=== PATIENT | female | born 1945 | race Caucasian/White ===

== ENCOUNTER → 2016-04-11 | Outpatient (CLI) | payer MEDICARE, OTHER ==
[2016-04-11 08:18] LABS: ALT 51 U/L (9-52); AST 32 U/L (14-36); Cholesterol 209 mg/dL (<200); Creatine Kinase 40 U/L (30-135); HDL Cholesterol 72 mg/dL (40-60); Triglycerides 229 mg/dL (<150)
== END | disposition home or self-care (01) ==
LOC: LABWHC1 07:24
PROVIDERS: ATTEND Internal Medicine Cardiovascular Disease
DX: E78.2 Mixed hyperlipidemia (principal)
CPT/HCPCS: 36415; 80061; 82550; 84450; 84460

== ENCOUNTER → 2016-09-11 | Outpatient (CLI) | payer MEDICARE, OTHER ==
[~2016-09-11] MED LIST: COSYNTROPIN 0.25 MG VIAL IVP NR; SODIUM CHLORIDE 0.9% 250 ML in EMPTY BAG 1 BAG IV PRN; SODIUM CHLORIDE 0.9% 500 ML in EMPTY BAG 1 BAG IV PRN
[2016-09-11 10:34] VITALS: BP 146/78; PULSE 73; RESP 16; TEMP 97.8
[2016-09-11 11:55] LABS: ALT 40 U/L (9-52); AST 25 U/L (14-36); Alkaline Phosphatase 76 U/L (38-126); Anion Gap 12 mmol/L; Blood Urea Nitrogen 14 mg/dL (7-17); Calcium 9.8 mg/dL (8.4-10.2); Carbon Dioxide 28 mmol/L (22-30); Chloride 102 mmol/L (98-107); Glucose 97 mg/dL (74-99); Non-African American GFR(MDRD) >60 (>60 ml/min/1.73 sqM); Potassium 3.9 mmol/L (3.5-5.1); Sodium 142 mmol/L (137-145); Total Bilirubin 0.8 mg/dL (0.2-1.3); Total Protein 6.6 g/dL (6.3-8.2)
== END | disposition home or self-care (01) ==
LOC: PROCWHC3 09:54
PROVIDERS: ATTEND Internal Medicine Endocrinology, Diabetes & Metabolism
DX: D35.00 Benign neoplasm of unspecified adrenal gland (principal)
CPT/HCPCS: 83835; 80053; 82533; 82088; 84244; G0463; 82384; 99213

== ENCOUNTER → 2016-11-13 | Outpatient (CLI) | payer MEDICARE, OTHER ==
[2016-11-13 07:39] LABS: Blood Urea Nitrogen 13 mg/dL (7-17); Non-African American GFR(MDRD) >60 (>60 ml/min/1.73 sqM)
--- NOTE | 2016-11-13 08:32 | CT ---
EXAMINATION TYPE: CT soft tissue neck w con DATE OF EXAM: 11/13/2016 8:03 AM COMPARISON: NONE HISTORY: Non-Toxic Multinodular goiter CT DLP: 376 mGycm Automated exposure control for dose reduction was used. CONTRAST: CT scan of the neck is performed following with IV Contrast, patient injected with 100 mL of Omnipaqu e 300. Axial images are obtained, coronal and sagittal reformatted images are reviewed. FINDINGS: There are emphysematous changes throughout the lungs.. There is a 3.4 cm aortic aneurysm in volving the proximal descending thoracic aorta. The proximal arch is normal in caliber. Visualized intracranial structures are normal. Visualized portions of the paranasal sinuses and masto ids are clear. Vertebral body height and alignment are maintained. Atlantoaxial relationships are normal. There is d isc space loss and hypertrophic spondylosis as well as uncovertebral joint disease at C5-6. There is also facet arthropathy at this level. The parapharyngeal soft tissues are normal. There is asymmetry in the oropharyngeal soft tissues with soft tissue prominence on the right. Laryngeal soft tissues appear normal. The right lobe of the thyroid measures 7.4 x 3.5 x 2.7 cm. The left lobe of the thyroid measures 8.4 x 2.6 x 3.2 cm. The isthmus measures 1.6 cm. The gland is d iffusely heterogenous. There is a 1 cm ring-enhancing hypoattenuating lesion in the mid polar region of the right lobe of the thyroid. There is no definite adenopathy. There is a 1.2 cm lesion in the left parotid gland that contains fat and this likely represents a small lipoma. The submandibular glands are normal. IMPRESSION: 1. THYROMEGALY. 2. RING-ENHANCING, CYSTIC-APPEARING LESION IN THE MID POLAR REGION OF THE RIGHT LOBE OF THE THYROID. 3. PROBABLE LEFT PAROTID LIPOMA. 4. EMPHYSEMATOUS CHANGES WITHIN THE LUNGS. 5. ASCENDING THORACIC AORTIC ANEURYSM. 6. DEGENERATIVE CHANGES WITHIN THE SPINE. 7. ASYMMETRY IN THE OROPHARYNGEAL SOFT TISSUES WITH PROMINENCE ON THE RIGHT. DIRECT VISUALIZATION WOU LD BE SUGGESTED.
== END | disposition home or self-care (01) ==
LOC: RADCTMAIN 06:51
PROVIDERS: ATTEND Otolaryngology Plastic Surgery within the Head & Neck
DX: E01.0 Iodine-deficiency related diffuse (endemic) goiter (principal); Z01.812 Encounter for preprocedural laboratory examination
CPT/HCPCS: 82565; 84520; 70491; 36415; Q9967

== ENCOUNTER → 2017-05-26 | Outpatient (CLI) | payer MEDICARE, OTHER ==
[2017-05-26 10:44] LABS: ALT 45 U/L (9-52); AST 31 U/L (14-36); Albumin 4.9 g/dL (3.5-5.0); Alkaline Phosphatase 54 U/L (38-126); Anion Gap 12 mmol/L; Blood Urea Nitrogen 20 mg/dL (7-17); Carbon Dioxide 32 mmol/L (22-30); Chloride 100 mmol/L (98-107); Glucose 99 mg/dL (74-99); Potassium 4.4 mmol/L (3.5-5.1); Sodium 144 mmol/L (137-145); Total Bilirubin 0.7 mg/dL (0.2-1.3); Total Protein 7.9 g/dL (6.3-8.2)
--- NOTE | 2017-05-26 11:56 | CT ---
EXAMINATION TYPE: CT angio chest DATE OF EXAM: 05/26/2017 COMPARISON: NONE HISTORY: Patient has no complaints at time of study. Known thoracic aortic aneurysm. CT DLP: 333.4 mGycm CONTRAST: CTA thoracic aorta with 3-D reconstruction is performed and with IV Contrast, patient injected with 1 00 mL of Omnipaque 350. Contrast CTA of the thoracic aorta was performed from the lung apex through the upper abdomen. 3D re construction imaging obtained at a separate workstation. CT Chest: THORACIC AORTA: Ascending thoracic aorta measures 4.1 cm in AP dimension. No evidence for dissection or complicating factor at this time. Aortic arch and descending thoracic aorta are of normal caliber. Mild atheromatous changes detected. Upper abdominal aorta appears to be of normal caliber. LUNGS: The lungs are clear and free of infiltrate or atelectasis. Calcified granulomas identified. N o pulmonary nodule or mass is detected. No pleural effusion or CT evidence of interstitial lung dise ase. MEDIASTINUM: Calcified mediastinal lymph nodes. No evidence for mediastinal hematoma. The heart is not enlarged. No evidence for mediastinal mass or adenopathy. HILAR STRUCTURES: No evidence for mass. No hilar adenopathy is appreciated. OTHER: No significant abnormality. IMPRESSION- 1. Ascending thoracic aortic aneurysm without complicating factor noted.
== END | disposition home or self-care (01) ==
LOC: RADCTMAIN 09:55
PROVIDERS: ATTEND Internal Medicine Cardiovascular Disease
DX: I71.2 Thoracic aortic aneurysm, without rupture (principal); Z88.1 Allergy status to other antibiotic agents; Z88.8 Allergy status to other drugs, medicaments and biological substances
CPT/HCPCS: 80053; 84443; 71275; 36415; Q9967

== ENCOUNTER → 2017-12-17 | Outpatient (CLI) | payer MEDICARE, OTHER ==
[2017-12-17 07:36] LABS: Blood Urea Nitrogen 19 mg/dL (7-17)
--- NOTE | 2017-12-17 10:15 | CT ---
EXAMINATION TYPE: CT abdomen wo/w con DATE OF EXAM: 12/17/2017 COMPARISON: CT chest 05/26/2017 HISTORY: Benign neoplasm RT adrenal gland CT DLP: 1085.10 mGycm Automated exposure control for dose reduction was used. TECHNIQUE: Helical acquisition of images was performed from the lung bases through the top of iliac crest to include entire abdomen. CONTRAST: Performed with Oral Contrast and with IV Contrast, patient injected with 100 mL of Isovue 300. FINDINGS: Precarinal lymph node shows borderline enlargement measuring 10 to 11 mm but is stable. LUNG BASES: Evidence of old granulomatous disease, calcified nodule present in the right lower lobe, calcified right hilar and subcarinal nodes present. Small hiatal hernia present. LIVER/GB: Liver shows low attenuation possibly due to hepatic steatosis, gallbladder has been removed . PANCREAS: No significant abnormality is seen. SPLEEN: No significant abnormality is seen. ADRENALS: No significant abnormality is seen. No evident adrenal mass. Adrenal glands show a stable a ppearance. KIDNEYS: Lower pole exophytic lesions present at the right kidney anteriorly measuring 15 mm and like ly representing simple cysts, smaller lesion in the exophytic location posteriorly measures 7 mm but is dense with Hounsfield units 46 and without significant enhancement following contrast administrati on, findings likely represent proteinaceous cyst. BOWEL: No significant abnormality is seen. LYMPH NODES: No significant abnormality is appreciated. OSSEOUS STRUCTURES: Degenerative disc disease present in the lower lumbar spine, minimal anterolisth esis noted incidentally, there are facet arthropathy changes. FREE AIR: No Free Air visible ASCITES: None visible. RETROPERITONEAL ADENOPATHY: No Retroperitoneal Adenopathy visible. OTHER: Ascending aorta is dilated measuring approximately 4.3 cm. Descending aorta shows normal calib er, no evident dissection IMPRESSION: NO EVIDENT ADRENAL MASS. POSSIBLE PROTEINACEOUS CYST LOWER POLE RIGHT KIDNEY, CONSIDER FOLLOW-UP. ASC ENDING AORTIC ANEURYSM, FOLLOW-UP RECOMMENDED. OLD GRANULOMATOUS DISEASE. POSTOP CHANGES. SMALL HIATA L HERNIA.
== END | disposition home or self-care (01) ==
LOC: RADCTMAIN 06:44
PROVIDERS: ATTEND Internal Medicine Endocrinology, Diabetes & Metabolism
DX: K44.9 Diaphragmatic hernia without obstruction or gangrene (principal); Z98.890 Other specified postprocedural states
CPT/HCPCS: 82565; 84443; 84520; 74170; 36415; Q9967

== ENCOUNTER → 2018-06-23 | Outpatient (CLI) | payer MEDICARE | END | disposition home or self-care (01) | LOC: LABWHC1 08:38 | PROVIDERS: ATTEND Internal Medicine Endocrinology, Diabetes & Metabolism | DX: E03.8 Other specified hypothyroidism (principal) | CPT/HCPCS: 36415; 84443 ==

== ENCOUNTER → 2018-12-20 | Outpatient (CLI) | payer MEDICARE | END | disposition home or self-care (01) | LOC: LABWHC1 09:48 | PROVIDERS: ATTEND Internal Medicine Endocrinology, Diabetes & Metabolism | DX: E03.8 Other specified hypothyroidism (principal) | CPT/HCPCS: 36415; 84443 ==

== ENCOUNTER → 2019-04-28 | Outpatient (CLI) | payer MEDICARE ==
[2019-04-28 09:20] VITALS: BP 124/82; PULSE 72; RESP 18; TEMP 97.4
--- NOTE | 2019-04-28 10:12 | P.GSHP ---
History of Present Illness H&P Date: 04/28/19 Chief Complaint: abnormal right mammogram Meagan is seen in consultation for Peggy Skaggs NP, and Dr. Manning regarding an abnormal rigth breast mammogra. Meagan is a 73 year old white female who had a screening mammogram performed on [id number]. This revealed 2 groups of microcalcification involving the lateral portion of the right breast that were not present on prior mammograms. These were 16 and 19 cm from the nipple. Additional views of the right breast were recommended. No lesions of concern were identified in the left breast. The patient then had a diagnostic right breast mammogram which revealed again 2 groups of microcalcifications at the axillary portion of the right breast which have increased in number and size as compared to prior mammogram. Stereotactic core biopsy of both of these groups were recommended. Meagan does not feel anything in either breast off concern. In June the patient fell and hit her chest on the right side. She has no lumps or pain now at the site. The patient does not feel any masses nodules or lumps in her br easts. She has no nipple discharge or skin changes of concern. She has not had any recent infection in her breast. She has never had a left breast biopsy excisional biopsy she states the size of a lemon removed. It was benign. This was done many years ago. She also states she has multiple calcifications they are watching in her lungs. These are stable as per the patient. Caffeine: rare nicotine: none chocolate: every other day hormones: none Family History: sister: breast cancer at 55 sister: thyroid cancer father: multiple myloma Hormonal History: menarche: 9 , breast fed: yes, first born at 20 menopause: 54 BCP: 5 years hormones: < 1 year Surgical History: 1. gallbaldder 2. gallstone retained 16 years later 3. lithotripsy/ kidney stones 4. bilateral ears to hear 5. left breast biopsy 6. sphincter muscle/hemherroids 7. cyst on back 8. thyroid resection, no cancer goiter Medical History: HTN hypothyroid Social History: smoke: none alcohol: none drugs: none - Constitutional Constitutional: Denies chills, Denies fever - EENT Comment: wears glasses Ears: bilateral: decreased hearing (bilateral ear surgery) Ears, nose, mouth and throat: Denies headache, Denies sore throat - Breasts Breasts: bilateral: as per HPI - Cardiovascular Comment: leaking valves in heart Cardiovascular: Reports high blood pressure - Respiratory Respiratory: Denies cough, Denies 7 - Gastrointestinal Gastrointestinal: Denies abdominal pain, Denies diarrhea, Denies nausea, Denies vomiting - Genitourinary (Female) Genitourinary: Reports kidney stones - Menstruation Menstruation: Reports postmenopausal - Musculoskeletal Comment: arthritis - Integumentary Integumentary: Denies pruritus, Denies rash - Neurological Neurological: Denies numbness, Denies weakness - Psychiatric Psychiatric: Denies anxiety, Denies depression - Endocrine Comment: hypothyroid Endocrine: Reports weight change, Denies fatigue - Hematologic/Lymphatic Comment: aspirin, left nostril nose bleeds - Allergic/Immunologic Allergic/Immunologic: Reports as per HPI Past Medical History History of Any Multi-Drug Resistant Organisms: None Reported Smoking Status: Never smoker Medications and Allergies Home Medications Medication Instructions Recorded Confirmed Type Levothyroxine Sodium [Synthroid] 175 mcg PO DAILY 09/11/16 04/28/19 History Cider Vinegar [Apple Cider Vinegar] 600 mg PO DAILY 04/26/19 04/28/19 History Garlic 1 each PO DAILY 04/26/19 04/28/19 History Krill Oil 1 cap PO DAILY 04/26/19 04/28/19 History Metoprolol Tartrate [Lopressor] 50 mg PO BID 04/26/19 04/28/19 History Multivitamins, Thera [Multivitamin 1 tab PO DAILY 04/26/19 04/28/19 History (formulary)] Red Yeast Rice 600 mg PO DAILY 04/26/19 04/28/19 History Resveratrol 100 mg PO DAILY 04/26/19 04/28/19 History Turmeric Root Extract [Turmeric] 500 mg PO DAILY 04/26/19 04/28/19 History Aspirin 81 mg PO DAILY 04/28/19 04/28/19 History Allergies Allergy/AdvReac Type Severity Reaction Status Date / Time ciprofloxacin [From Cipro] Allergy Rash/Hives Verified 04/28/19 09:17 diazepam [From Valium] Allergy Swelling Verified 04/28/19 09:17 Surgical - Exam Vital Signs Temp Pulse Resp BP Pulse Ox 97.4 F L 72 18 124/82 96 04/28/19 09:18 04/28/19 09:18 04/28/19 09:18 04/28/19 09:18 04/28/19 09:18 BMI 26 - General well developed - Eyes normal ocular movement, no icteric - ENT normal pinna, no hearing loss, no congestion - Neck no masses, trachea midline - Respiratory normal expansion, normal respiratory effort, clear to auscultation - Cardiovascular Rhythm: regular Heart Sounds: normal: S1, S2 - Abdomen Abdomen: soft, non tender, bowel sounds, no guarding, no rigid, no rebound - Integumentary normal turgor - Neurologic no disoriented, no combative - Musculoskeletal normal gait - Psychiatric oriented to time, oriented to person, oriented to place, speech is normal, memory intact breast exam: BRA 40DD inspection: no skin changes of concern, left breast well healed scar or nipple inversion, right breast slightly larger than left breast palpation: right breast: Multiple positional exam fibrocystic changes, no dominant masses or nodules of concern Right axilla: No adenopathy of concern Left breast: Multiple position exam no dominant masses or nodules of concern, well-healed scar from prior biopsy Left axilla: No adenopathy of concern Results Mammogram reviewed with radiologist, the area of concern or 2 spots in the right breast with microcalcifications. One appears to be possibly in the axilla and possibly a lymph node. Assessment and Plan Assessment: Impression: HTN hypothyroid Microcalcifications in 2 areas of the right breast laterally Fibrocystic disease Family history of cancer Plan: 1. Stereotactic core biopsy of 2 areas of concern in the right breast, one area was not seen well and in exaggerated he will be necessary to do the biopsy of the most lateral area, if this cannot be seen stereotactically would consider an ultrasound with ultrasound-guided core biopsy 2. Patient to stop any aspirin or supplements for at least 1 week prior to procedure 3. Medical management of medical conditions Risks and benefits of procedure discussed with the patient she understands and wishes to proceed. CC: Peggy Skaggs NP, encounter 50 minutes, > 50% of time in planning and counselling Time with Patient: Greater than 30
--- NOTE | 2019-04-29 11:38 | USB ---
Reason for exam: clinical finding. Physical Findings: Breast exam performed by Dr. Stuart. US Breast Axilla RT Prior study comparison: March 15, 2019, mammogram. Right breast axilla ultrasound demonstrates no cystic or solid lesion seen. No abnormal adenopathy. Ultrasound is negative. These results were verbally communicated with the patient and result sheet given to the patient on 04/28/19. ASSESSMENT: Suspicious, BI-RAD 4 RECOMMENDATION: Stereotactic core biopsy of the right breast. (based on outside mammogram) Biopsy scheduled for 05/05/19 at 8:00. PRELIMINARY REPORT CALLED AND FAXED TO DR. STUART ON 04/29/19.
== END | disposition home or self-care (01) ==
LOC: WWCWWP 08:57
PROVIDERS: ATTEND Surgery
DX: R92.1 Mammographic calcification found on diagnostic imaging of breast (principal)

== ENCOUNTER → 2019-05-05 | Day surgery (SDC) | payer MEDICARE ==
[2019-05-05 09:43] VITALS: TEMP 97.8
[2019-05-05 11:18] VITALS: BP 109/78; PULSE 66; RESP 17
== END ==
LOC: RADMAMWWP 07:04 → EDSTATUS 08:00 → RADMAMWWP 09:34 → EC 09:34
PROVIDERS: ATTEND Surgery
DX: N60.11 Diffuse cystic mastopathy of right breast (principal); N62 Hypertrophy of breast; N60.81 Other benign mammary dysplasias of right breast; R92.1 Mammographic calcification found on diagnostic imaging of breast; R92.8 Other abnormal and inconclusive findings on diagnostic imaging of breast
CPT/HCPCS: 19081; 19082; 99282; 36415; 93005; 85379; 84439; 88305; 83880; 80053; 84443; 82550; 83735; 84484; 85025; 71046; A4648; J2001

== ENCOUNTER → 2019-05-12 | Outpatient (CLI) | payer MEDICARE ==
[2019-05-12 08:38] VITALS: BP 146/85; PULSE 65; RESP 16; TEMP 98.5
--- NOTE | 2019-05-12 09:01 | P.PN ---
Subjective Progress Note Date: 05/12/19 Principal diagnosis: atypical lobular hyperplasia Meagan is a 73-year-old white female status post stereotactic core biopsy of 2 sites in the right breast [place] [id number]. She states that the second site which was the anterior site biopsy caused considerable pain. She became hypotensive after the procedure and was seen in the emergency room and it was felt that the hypotension was most likely related to vasovagal episode. She does complain now of ecchymosis at the site. She has not had any swelling or redness. She has persistent tenderness. Pathology revealed at site a which was the posterior site with the secure marked fibrocystic changes including focal atypical lobular hyperplasia. Site B was the anterior lesion which has the tri-ross and revealed only fibrocystic changes but no atypia was identified. Objective - Vital Signs Vital signs: Vital Signs Temp 98.5 F 05/12/19 08:34 Pulse 65 05/12/19 08:34 Resp 16 05/12/19 08:34 BP 146/85 05/12/19 08:34 Pulse Ox 94 L 05/12/19 08:34 Intake & Output 05/11/19 05/12/19 05/12/19 18:59 06:59 18:59 Weight 72.575 kg - Exam BMI 26.6 - Constitutional General appearance: Present: average body habitus - EENT Eyes: Present: EOMI ENT: Present: hearing grossly normal - Respiratory Respiratory: bilateral: CTA - Cardiovascular Rhythm: regular Heart sounds: normal: S1, S2 - Integumentary Integumentary Comment(s): echymosis at biopsy site no evidence of infection - Musculoskeletal Musculoskeletal: Present: gait normal - Psychiatric Psychiatric: Present: A&O x's 3, appropriate affect, intact judgment & insight - Additional findings Additional findings: Right breast: Puncture sites clean and dry, achymosis lateral aspect of the breast, hematoma at biopsy site, there are 2 puncture sites from the 2 areas of biopsy Assessment and Plan Assessment: Impression: 1. atypical lobular hyperplasia of the right breast site a 2. Hypertension 3. Hypothyroidism 4. Status post cholecystectomy with retained stones 16 years later 5. Lithotripsy/kidney stones 6. Bilateral ear surgery in the past 7. Hemorrhoidectomy 8. Thyroid resection Plan: 1. Needle localization excisional lumpectomy right breast site a posterior site secured ross for atypical lobular hyperplasia 2. Depending on results of pathology repeat right breast mammogram in 6 months CC: Dr. Nigel Peguero encounter 15 minutes, > 50% of time in planning and counseling Time with Patient: Less than 30
== END | disposition home or self-care (01) ==
LOC: WWCWWP 08:16
PROVIDERS: ATTEND Surgery
DX: Z53.9 Procedure and treatment not carried out, unspecified reason (principal)
CPT/HCPCS: 19082

== ENCOUNTER → 2019-09-08 | Outpatient (CLI) | payer MEDICARE ==
[2019-09-08 09:07] VITALS: BP 133/83; PULSE 71; RESP 20; TEMP 98.1
--- NOTE | 2019-09-08 09:34 | P.PN ---
Subjective Progress Note Date: 09/08/19 Principal diagnosis: Right breast biopsy posterior lesion with atypia on core biopsy Meagan was seen in consultation for Peggy Skaggs NP, and Dr. Manning regarding an abnormal rigth breast mammogra. Meagan is a 73 year old white female who had a screening mammogram performed on [id number]. This revealed 2 groups of microcalcification involving the lateral portion of the right breast that were not present on prior mammograms. These were 16 and 19 cm from the nipple. Additional views of the right breast were recommended. No lesions of concern were identified in the left breast. The patient then had a diagnostic right breast mammogram which revealed again 2 groups of microcalcifications at the axillary portion of the right breast which have increased in number and size as compared to prior mammogram. Stereotactic core biopsy of both of these groups were recommended. Meagan did not feel anything in either breast off concern. In June the patient fell and hit her chest on the right side. She has no lumps or pain now at the site. The patient does not feel any masses nodules or lumps in her breasts. She has no nipple discharge or skin changes of concern. She has not had any recent infection in her breast. She has never had a left breast biopsy excisional biopsy she states the size of a lemon removed. It was benign. This was done many years ago. She also states she has multiple calcifications they are watching in her lungs. These are stable as per the patient. She underwent a stereotactic core biopsy of 2 sites in the right breast on . The second site which was anterior cause considerable pain. She became hypotensive after the procedure and was seen in the emergency room and it was felt that the hypotension was most likely related to vasovagal episode. Pathology of site a which was the posterior site with secure ross show fi brocystic changes including focal atypical lobular hyperplasia. Site B was to was the anterior lesion was marked by the try Ross revealed only fibrocystic changes but no atypia. It is therefore been recommended that the patient undergo needle localization excisional biopsy of site a which is the posterior site. Caffeine: rare nicotine: none chocolate: every other day hormones: none Family History: sister: breast cancer at 55 sister: thyroid cancer father: multiple myloma Hormonal History: menarche: 9 , breast fed: yes, first born at 20 menopause: 54 BCP: 5 years hormones: < 1 year Surgical History: 1. gallbaldder 2. gallstone retained 16 years later 3. lithotripsy/ kidney stones 4. bilateral ears to hear 5. left breast biopsy 6. sphincter muscle/hemherroids 7. cyst on back 8. thyroid resection, no cancer goiter Medical History: HTN hypothyroid Social History: smoke: none alcohol: none drugs: none - Constitutional Constitutional: Denies chills, Denies fever - EENT Comment: wears glasses Ears: bilateral: decreased hearing (bilateral ear surgery) Ears, nose, mouth and throat: Denies headache, Denies sore throat - Breasts Breasts: bilateral: as per HPI - Cardiovascular Comment: leaking valves in heart, follows with DR. Deleon, had a recent stress test Cardiovascular: Reports high blood pressure - Respiratory Respiratory: Denies cough - Gastrointestinal Gastrointestinal: Denies abdominal pain, Denies diarrhea, Denies nausea, Denies vomiting - Genitourinary (Female) Genitourinary: Reports kidney stones - Menstruation Menstruation: Reports postmenopausal - Musculoskeletal Comment: arthritis - Integumentary Integumentary: Denies pruritus, Denies rash - Neurological Neurological: Denies numbness, Denies weakness - Psychiatric Psychiatric: Denies anxiety, Denies depression - Endocrine Comment: hypothyroid Endocrine: Reports weight change, Denies fatigue - Hematologic/Lymphatic Comment: aspirin, left nostril nose bleeds - Allergic/Immunologic Allergic/Immunologic: Reports as per HPI Past Medical History History of Any Multi-Drug Resistant Organisms: None Reported Smoking Status: Never smoker Objective - Vital Signs Vital signs: Vital Signs Temp 98.1 F 09/08/19 09:03 Pulse 71 09/08/19 09:03 Resp 20 09/08/19 09:03 BP 133/83 09/08/19 09:03 Pulse Ox 97 09/08/19 09:03 Intake & Output 09/07/19 09/08/19 09/08/19 18:59 06:59 18:59 Weight 74.389 kg - Exam BMI 27.3 - Constitutional General appearance: Present: average body habitus - EENT Eyes: Present: EOMI ENT: Present: hearing grossly normal - Neck Neck: Present: normal ROM - Respiratory Details: few crackles right base, Respiratory: left: CTA - Cardiovascular Rhythm: regular Heart sounds: normal: S1, S2 - Integumentary Integumentary Comment(s): fungal infection under each breast, worse under left breast - Musculoskeletal Musculoskeletal: Present: gait normal - Psychiatric Psychiatric: Present: A&O x's 3, appropriate affect, intact judgment & insight - Additional findings Additional findings: breast exam: BRA 40D inspection: right breast larger than left, ptosis bilateral grade 3 palpation: right breast: Multi-positional exam no dominant masses or nodules of concern, fibrocystic changes Right axilla: No adenopathy of concern Left breast: Multi-positional exam no dominant masses or nodules of concern, fibrocystic changes Left axilla: No adenopathy of concern Assessment and Plan Assessment: Impression: 1. Atypical lobular hyperplasia of the right breast site a/posterior site 2. Hypertension 3. Hypothyroidism 4. Status post cholecystectomy with retained stone 16 years later 5. Lithotripsy/kidney stones 6. Bilateral ear surgery in the past 7. Hemorrhoidectomy 8. Thyroid resection 9. Fungal infection under both breast Plan: 1. Needle localization excisional lumpectomy of right breast site a posterior site lateral aspect of the breast secure marked top hat at this site 2. Clearance from medicine and cardiology 3. Nystatin to area fungal infection under the breast Patient benefits of the procedure discussed with the patient she understands and wishes to proceed. Risks include but are not limited to bleeding, infection, reaction to the anesthetic. Risks also include possibility that the needle could move and/or the lesion not be excised. Patient understands and wishes to proceed. CC: Jamie Cortés encounter 25 minutes, > 50% of time in planning and counselling
== END | disposition home or self-care (01) ==
LOC: WWCWWP 08:52
PROVIDERS: ATTEND Surgery
DX: Z53.9 Procedure and treatment not carried out, unspecified reason (principal)

== ENCOUNTER 2019-09-20 10:41 | Day surgery (SDC) | payer MEDICARE ==
[2019-09-14 16:06] VITALS: BMI 27.3
[~2019-09-20 10:41] MED LIST changes: -COSYNTROPIN 0.25 MG VIAL IVP NR; +DEXAMETHASONE SOD PHOSPHATE 10 MG/ML 1 ML VIAL IV ONE; +HEPARIN SODIUM,PORCINE 5,000 UNIT/ML 1 ML VIAL SQ ONE; +HYDROmorphone 0.5 MG/0.5 ML SYRINGE IVP PRN; +LACTATED RINGERS 1,000 ML IV SCH; +LIDOCAINE 1% (10MG/ML) FOR IV START INTRADERMA PRN; +MIDAZOLAM 2 MG/2 ML VIAL IV PRN; +ONDANSETRON 4 MG/2 ML VIAL IVP ONE; -SODIUM CHLORIDE 0.9% 250 ML in EMPTY BAG 1 BAG IV PRN; -SODIUM CHLORIDE 0.9% 500 ML in EMPTY BAG 1 BAG IV PRN; +fentaNYL (PF) 50 MCG/ML 2 ML AMP IV PRN
[2019-09-20] MEDS ORDERED: ALPRAZolam 0.25 MG TAB ONE (11:13)
[2019-09-20] MEDS ORDERED: LIDOCAINE 1% INJ 10MG/ML (20 ML MDV) SQ ONE ×3 (12:39→16:27)
[2019-09-20] MEDS ORDERED: ONDANSETRON 4 MG/2 ML VIAL ONE (13:20)
[2019-09-20] MEDS ORDERED: HEPARIN SODIUM,PORCINE 5,000 UNIT/ML 1 ML VIAL ONE (13:20)
[2019-09-20] MEDS ORDERED: PROPOFOL 10 MG/ML 20 ML VIAL IV ONE (15:25)
[2019-09-20] MEDS ORDERED: SUCCINYLCHOLINE CHLORIDE 100 MG/5 ML SYR IV ONE (15:25)
[2019-09-20] MEDS ORDERED: MIDAZOLAM 2 MG/2 ML VIAL ONE (15:25)
[2019-09-20] MEDS ORDERED: LIDOCAINE 1% INJ 10MG/ML (20 ML MDV) ONE (15:25)
[2019-09-20] MEDS ORDERED: fentaNYL (PF) 50 MCG/ML 2 ML AMP ONE (15:25)
[2019-09-20] MEDS ORDERED: PHENYLEPHRINE-0.9% NACL SYG 1 MG/10 ML SYRINGE ONE (15:25)
[2019-09-20] MEDS ORDERED: LACTATED RINGERS 1,000 ML IV ONE (16:19)
--- NOTE | 2019-09-20 16:44 | MM ---
EXAMINATION TYPE: MG pre op needle loc RT DATE OF EXAM: 09/20/2019 COMPARISON: 05/05/2019 CLINICAL HISTORY: Abnormal mammogram, abnormal stereotactic core biopsy TECHNIQUE: Needle localization with wire placement and surgical excision of area of concern in the ri t breast. FINDINGS: The procedure of needle localization with wire placement for surgical excision was explaine d to the patient. Risk, benefits, and alternatives were discussed. An informed consent was then obt ained. A timeout was performed. The overlying skin was prepped and draped in usual sterile fashion. Lidocaine 1% was used as anesthe tic into the skin and subcutaneous tissue up to the level of area of concern. A 7 cm needle was used . This was placed via a lateral approach under mammographic guidance. Subsequent 90 degrees mammogr am show the needle to be in satisfactory position relative to the targeted area. The wire was placed through the needle and the needle was withdrawn. The wire was fixed to patient's skin. Images were marked for surgeon. The patient tolerated the procedure well without any immediate complication. Specimen: The wire and the targeted biopsy marker are identified within the specimen mammogram. A sec ond biopsy marker known to be in close approximation is also within the specimen. IMPRESSION: 1. Successful wire localization and excision. Recommendations: 1. Recommendations are pending pathology results.
[2019-09-20 16:55] VITALS: TEMP 97
--- NOTE | 2019-09-20 16:58 | P.OP ---
Date of Procedure: 09/20/19 Preoperative Diagnosis: Atypical lobular hyperplasia right breast Postoperative Diagnosis: Same Procedure(s) Performed: needle localization excisional biopsy right breast UOQ Anesthesia: GETA Surgeon: Jessy Stuart Estimated Blood Loss (ml): 5 IV fluids (ml): 1,200 Pathology: other (bresat tissue) Condition: stable Disposition: same day Indications for Procedure: Biopsy showing atypical lobular hyperplasia right breast Operative Findings: Fibrofatty breast tissue Description of Procedure: Description of Procedure: Meagan is a 70-year-old white female who is status post core biopsy of 2 areas in the right breast. The more posterior lesion was shown to have atypical lobular hyperplasia. She was recommended to have needle local excisional biopsy of this lesion. The patient was taken to the radiology department and needle localization of the area of concern was performed. Patient was then brought to the preoperative area and operative suite. Following induction of anesthesia the right breast was prepped and draped in a sterile fashion. An incision was made and carried down to the shaft of the needle. The tissue around the needle was grasped using an Allis clamp. Wide excision around the needle was performed. Radiograph of the specimen was performed after was painted for orientation. The area of concern was removed. Titanium clips were placed in the cavity. The wound was examined for hemostasis. After we were asured that hemostatis was preformed Surgicel in powder form was placed. The deep tissues were closed using 3-0 Vicryl suture. The skin was closed using 4-0 Monocryl. Mastisol and Steri- Strips were applied. The patient tolerated the procedure in stable condition. All instrument and sponge counts were correct at the end of the case.
--- NOTE | 2019-09-20 17:00 | P.DS ---
Providers Attending physician: Jessy Stuart Primary care physician: Randal Manning Plan - Discharge Summary Discharge Rx Participant: Yes New Discharge Prescriptions: No Action Levothyroxine Sodium [Synthroid] 175 mcg PO QAM Metoprolol Tartrate [Lopressor] 50 mg PO BID Krill Oil 1 cap PO HS Resveratrol 100 mg PO HS Red Yeast Rice 600 mg PO HS Garlic 1 each PO HS Cider Vinegar [Apple Cider Vinegar] 600 mg PO HS Turmeric Root Extract [Turmeric] 500 mg PO HS Multivitamins, Thera [Multivitamin (formulary)] 1 tab PO HS Aspirin 81 mg PO HS Discharge Medication List Levothyroxine Sodium [Synthroid] 175 mcg PO QAM 09/11/16 [History] Cider Vinegar [Apple Cider Vinegar] 600 mg PO HS 04/26/19 [History] Garlic 1 each PO HS 04/26/19 [History] Krill Oil 1 cap PO HS 04/26/19 [History] Metoprolol Tartrate [Lopressor] 50 mg PO BID 04/26/19 [History] Multivitamins, Thera [Multivitamin (formulary)] 1 tab PO HS 04/26/19 [History] Red Yeast Rice 600 mg PO HS 04/26/19 [History] Resveratrol 100 mg PO HS 04/26/19 [History] Turmeric Root Extract [Turmeric] 500 mg PO HS 04/26/19 [History] Aspirin 81 mg PO HS 04/28/19 [History] Follow up Appointment(s)/Referral(s): Jessy Stuart MD [STAFF PHYSICIAN] - 1 Week Activity/Diet/Wound Care/Special Instructions: Do not drive for 24 hours after discharge May shower after 48 hours wear bra at all times Do not drive if taking narcotic pain medication Discharge Disposition: HOME SELF-CARE
[2019-09-20 17:04] VITALS: PULSE 73
[2019-09-20 17:27] VITALS: RESP 16
[2019-09-20 17:36] VITALS: BP 140/82
== END 2019-09-20 17:54 | disposition home or self-care (01) ==
LOC: OR 10:41
PROVIDERS: ATTEND Surgery
DX: N60.31 Fibrosclerosis of right breast (principal); N64.89 Other specified disorders of breast; I10 Essential (primary) hypertension; K76.0 Fatty (change of) liver, not elsewhere classified; E89.0 Postprocedural hypothyroidism; E78.5 Hyperlipidemia, unspecified; I71.2 Thoracic aortic aneurysm, without rupture; Z79.82 Long term (current) use of aspirin; Z79.890 Hormone replacement therapy; Z79.899 Other long term (current) drug therapy; Z88.1 Allergy status to other antibiotic agents; Z88.8 Allergy status to other drugs, medicaments and biological substances; Z90.49 Acquired absence of other specified parts of digestive tract; Z87.442 Personal history of urinary calculi; Z98.890 Other specified postprocedural states; Z80.3 Family history of malignant neoplasm of breast
CPT/HCPCS: 19125; 19281; J1644; J1100; J0690; J2405; J2001; J1170; 76098; 88307